=== PATIENT | male | born 1965 | race Caucasian/White ===

== ENCOUNTER 2024-10-23 19:42 | Inpatient (IN) | payer BC ==
[~2024-10-23] VITALS: Ht 188 cm; Wt 110.9 kg
[~2024-10-23 19:42] MED LIST: JANUMET XR 1001 EACH PO; LANTUS100 UNITS/ SQ
[2024-10-23 19:48] VITALS: PULSE 99; RESP 18; TEMP 97.8
[2024-10-23 20:05] LABS: BASOPHILS # (AUTO) 0.1 (0.0-0.1); BASOPHILS % 0.5 % (0.0-1.0); EOSINOPHILS # (AUTO) 0.1 (0.0-0.4); EOSINOPHILS % 0.3 % (0.0-6.0); HEMOGLOBIN 12.8 g/dL (14.0-18.0); LYMPHOCYTES % 5.7 % (18.0-39.1); MEAN CORPUSCULAR HEMOGLOBIN 28.7 pg (28-32); MEAN CORPUSCULAR VOLUME 89.7 fL (81-99); MONOCYTES # (AUTO) 2.2 (0.2-0.8); MONOCYTES % 12.2 % (4.4-11.3); NEUTROPHILS # (AUTO) 13.7 (2.1-6.9); NEUTROPHILS % 77.6 % (38.7-80.0); PLATELET COUNT 383 x10e3/uL (140-360); RED BLOOD COUNT 4.46 x10e6/uL (4.3-5.7); RED CELL DISTRIBUTION WIDTH 17.2 % (11.7-14.4); WHITE BLOOD COUNT 17.62 x10e3/uL (4.8-10.8)
[2024-10-23 20:34] LABS: ALBUMIN 1.7 g/dL (3.5-5.0); ALBUMIN/GLOBULIN RATIO 0.4 (0.8-2.0); ANION GAP 24.3 mmol/L (8-16); BILIRUBIN,TOTAL 0.4 mg/dL (0.2-1.2); CALCIUM 9.1 mg/dL (8.4-10.2); CREATININE, SERUM 1.29 mg/dL (0.72-1.25); TOTAL PROTEIN 6.2 g/dL (6.5-8.1)
[2024-10-23 20:39] LABS: TROPONIN I 0.016 ng/mL (0-0.300)
[2024-10-23 20:47] LABS: POTASSIUM 3.3 mmol/L (3.5-5.1)
[2024-10-23 21:00] LABS: BAND NEUTROPHILS % (MANUAL) 4 %; LYMPHOCYTES % (MANUAL) 5 % (19-48); METAMYELOCYTES % (MANUAL) 1 % (0-0); MONOCYTES % (MANUAL) 9 % (3.4-9.0); NEUTROPHILS % (MANUAL) 80 % (40-74); REACTIVE LYMPHOCYTES 1
[2024-10-23 21:04] LABS: PLATELET ESTIMATE ADEQUATE; PLATELET MORPHOLOGY COMMENT NORMAL; RBC MORPHOLOGY COMMENT NORMAL
[2024-10-23] MEDS: ACETAMINOPHEN 325 MG TAB PO STA (21:40)
[2024-10-23] MEDS: SODIUM CHLORIDE 0.9% 1000ML 1,000 ML IV STA (21:40)
[2024-10-23] MEDS: SODIUM BICARBONATE 8.4% SYRING 150 ML in DEXTROSE 5% 1,000 ML IV ONE (22:07)
[2024-10-23] MEDS: ONDANSETRON HCL INJ 2MG/ML 2ML 2 MG/ML VIAL IV PRN (22:09)
[2024-10-23] MEDS: Morphine 4mg INJECTION 4 MG/ML INJ IV PRN (22:10)
[2024-10-23] MEDS ORDERED: PANTOPRAZOLE SO40 MG (22:52)
[2024-10-23] MEDS ORDERED: DAPAGLIFLOZIN10 MG (22:52)
[2024-10-23] MEDS ORDERED: CLOTRIMAZOLE15 GM (22:52)
[2024-10-23] MEDS ORDERED: BENZONATATE200 MG (22:52)
[2024-10-23] MEDS ORDERED: ALBUTEROL (22:52)
[2024-10-23] MEDS ORDERED: ATORVASTATIN CA20 MG (22:52)
[2024-10-23 23:00] VITALS: BP 108/58; PULSE 95; RESP 27; O2SAT 99
[2024-10-23 23:17] VITALS: BP 121/63; PULSE 95; RESP 19; TEMP 97.8; O2SAT 100
[2024-10-24] VITALS (19 sets, daily range): BP systolic 114–152; BP diastolic 65–80; PULSE 86–98; RESP 11–23; TEMP 97.6–97.8; O2SAT 97–100
[2024-10-24 07:05] LABS: BASOPHILS # (AUTO) 0.1 (0.0-0.1); BASOPHILS % 0.5 % (0.0-1.0); EOSINOPHILS % 0.2 % (0.0-6.0); HEMATOCRIT 36.9 % (38.2-49.6); HEMOGLOBIN 12.1 g/dL (14.0-18.0); LYMPHOCYTES % 5.5 % (18.0-39.1); MEAN CORPUSCULAR HEMOGLOBIN 28.6 pg (28-32); MEAN CORPUSCULAR HGB CONC 32.8 g/dL (31-35); MEAN CORPUSCULAR VOLUME 87.2 fL (81-99); MONOCYTES # (AUTO) 2.6 (0.2-0.8); MONOCYTES % 14.1 % (4.4-11.3); NEUTROPHILS # (AUTO) 14.2 (2.1-6.9); NEUTROPHILS % 75.8 % (38.7-80.0); PLATELET COUNT 419 x10e3/uL (140-360); RED BLOOD COUNT 4.23 x10e6/uL (4.3-5.7); RED CELL DISTRIBUTION WIDTH 16.9 % (11.7-14.4); WHITE BLOOD COUNT 18.78 x10e3/uL (4.8-10.8)
[2024-10-24 07:35] LABS: ANION GAP 22.7 mmol/L (8-16); BILIRUBIN,TOTAL 0.4 mg/dL (0.2-1.2); CALCIUM 9.3 mg/dL (8.4-10.2); CREATININE, SERUM 1.2 mg/dL (0.72-1.25); TOTAL PROTEIN 5.8 g/dL (6.5-8.1)
[2024-10-24 07:41] LABS: POTASSIUM 2.7 mmol/L (3.5-5.1)
[2024-10-24 07:55] LABS: ALBUMIN 1.7 g/dL (3.5-5.0); ALBUMIN/GLOBULIN RATIO 0.4 (0.8-2.0)
[2024-10-24 08:16] LABS: TROPONIN I 0.009 ng/mL (0-0.300)
[2024-10-24] MEDS ORDERED: DEXTROSE 50% SYRINGE 50 ML IV PRN (10:45)
[2024-10-24] MEDS ORDERED: SIMETHICONE 80 MG CHEW PO PRN (10:45)
[2024-10-24] MEDS ORDERED: ALBUTEROL/IPRATROPIUM 3 ML NEB NEB PRN (10:45)
[2024-10-24] MEDS ORDERED: METOPROLOL TARTRATE INJ 1 MG/ML VIAL IV PRN (10:45)
[2024-10-24 11:43] LABS: CHOL/HDL RATIO 3.2 (3.9-4.7)
[2024-10-24] MEDS: INSULIN REGULAR, HUMAN 100 UNIT/1 ML SQ SCH (12:53)
[2024-10-24] MEDS: POTASSIUM CHLORIDE 20MEQ/100ML 200 ML IV ONE (12:56)
[2024-10-24] MEDS: SODIUM BICARBONATE 8.4% IV SCH (12:57)
[2024-10-24] MEDS: SODIUM CHLORIDE 0.45% IV SCH (12:57)
[2024-10-24] MEDS: VANCOMYCIN 1.5 GM/300 ML IV SCH (15:39)
[2024-10-24] MEDS: ENOXAPARIN SOD INJ 40 MG/0.4 ML SYR SC SCH (16:35)
[2024-10-24] MEDS: POTASSIUM CHLORIDE 20MEQ/100ML 100 ML IV SCH (22:49)
[2024-10-25] VITALS (16 sets, daily range): BP systolic 124–140; BP diastolic 63–77; PULSE 86–101; RESP 12–23; TEMP 97.7–98.7; O2SAT 98–100
[2024-10-25] MEDS: PANTOPRAZOLE SOD 40 MG TABEC PO SCH (09:28)
[2024-10-25 09:51] LABS: BASOPHILS # (AUTO) 0.1 (0.0-0.1); BASOPHILS % 0.6 % (0.0-1.0); EOSINOPHILS # (AUTO) 0.1 (0.0-0.4); EOSINOPHILS % 0.6 % (0.0-6.0); HEMATOCRIT 35.2 % (38.2-49.6); HEMOGLOBIN 11.6 g/dL (14.0-18.0); LYMPHOCYTES # (AUTO) 1.1 (1.0-3.2); LYMPHOCYTES % 5.8 % (18.0-39.1); MEAN CORPUSCULAR HEMOGLOBIN 28.6 pg (28-32); MEAN CORPUSCULAR VOLUME 86.9 fL (81-99); MONOCYTES # (AUTO) 3.1 (0.2-0.8); NEUTROPHILS # (AUTO) 12.6 (2.1-6.9); NEUTROPHILS % 69.3 % (38.7-80.0); PLATELET COUNT 431 x10e3/uL (140-360); RED BLOOD COUNT 4.05 x10e6/uL (4.3-5.7); RED CELL DISTRIBUTION WIDTH 17.1 % (11.7-14.4); WHITE BLOOD COUNT 18.16 x10e3/uL (4.8-10.8)
[2024-10-25 10:42] LABS: ANION GAP 20.1 mmol/L (8-16); CALCIUM 9.3 mg/dL (8.4-10.2); CREATININE, SERUM 1.18 mg/dL (0.72-1.25)
[2024-10-25 10:46] LABS: POTASSIUM 3.1 mmol/L (3.5-5.1)
[2024-10-25] MEDS: SODIUM BICARBONATE 8.4% IV SCH (16:47)
[2024-10-25] MEDS: SODIUM CHLORIDE 0.45% IV SCH (16:47)
[2024-10-26] VITALS (15 sets, daily range): BP systolic 120–150; BP diastolic 64–79; PULSE 85–105; RESP 14–24; TEMP 97.7–98.8; O2SAT 97–100
[2024-10-26 07:26] LABS: BASOPHILS # (AUTO) 0.1 (0.0-0.1); BASOPHILS % 0.7 % (0.0-1.0); EOSINOPHILS # (AUTO) 0.2 (0.0-0.4); EOSINOPHILS % 1.4 % (0.0-6.0); HEMATOCRIT 32.8 % (38.2-49.6); HEMOGLOBIN 10.9 g/dL (14.0-18.0); LYMPHOCYTES # (AUTO) 1.1 (1.0-3.2); LYMPHOCYTES % 7.6 % (18.0-39.1); MEAN CORPUSCULAR HEMOGLOBIN 28.7 pg (28-32); MEAN CORPUSCULAR HGB CONC 33.2 g/dL (31-35); MEAN CORPUSCULAR VOLUME 86.3 fL (81-99); MONOCYTES # (AUTO) 3.3 (0.2-0.8); MONOCYTES % 22.7 % (4.4-11.3); NEUTROPHILS % 61.3 % (38.7-80.0); PLATELET COUNT 442 x10e3/uL (140-360); RED CELL DISTRIBUTION WIDTH 16.9 % (11.7-14.4)
[2024-10-26 08:05] LABS: ANION GAP 17.8 mmol/L (8-16); CREATININE, SERUM 0.99 mg/dL (0.72-1.25)
[2024-10-26 08:07] LABS: POTASSIUM 2.8 mmol/L (3.5-5.1)
[2024-10-26] MEDS: POTASSIUM CHLORIDE 20MEQ/100ML 100 ML IV SCH (08:53)
[2024-10-26 10:38] LABS: BAND NEUTROPHILS % (MANUAL) 1 %; EOSINOPHILS % (MANUAL) 1 % (0-7); LYMPHOCYTES % (MANUAL) 6 % (19-48); METAMYELOCYTES % (MANUAL) 1 % (0-0); MONOCYTES % (MANUAL) 17 % (3.4-9.0); MYELOCYTES % (MANUAL) 6 % (0-0); NEUTROPHILS % (MANUAL) 68 % (40-74); PLATELET ESTIMATE ADEQUATE; PLATELET MORPHOLOGY COMMENT NORMAL
[2024-10-26] MEDS: INSULIN LISPRO 100 UNIT/1 ML 3ML VIAL SQ SCH (12:57)
[2024-10-26] MEDS: POTASSIUM CHLORIDE 20MEQ/100ML 100 ML IV ONE (17:23)
[2024-10-26] MEDS: CEFTRIAXONE 2 GM in SODIUM CHLORIDE 0.9% 100 ML IV SCH (20:29)
[2024-10-26] MEDS: POTASSIUM CHLORIDE 20MEQ/100ML 100 ML ONE (22:29)
[2024-10-27] VITALS (20 sets, daily range): BP systolic 137–161; BP diastolic 68–94; PULSE 87–101; RESP 13–20; TEMP 97.9–98.5; O2SAT 94–100
[2024-10-27 07:40] LABS: HIV 1&2 AB SCREEN NON-REACTIVE (NONREACTIVE); HIV- 1 P24 AG SCREEN NON-REACTIVE (NONREACTIVE)
[2024-10-27] MEDS: ACETAMINOPHEN 325 MG TAB PO PRN (12:04)
[2024-10-27] MEDS: INSULIN LISPRO 100 UNIT/1 ML 3ML VIAL SQ SCH (12:07)
[2024-10-28] VITALS (13 sets, daily range): BP systolic 124–153; BP diastolic 69–79; PULSE 93–109; RESP 14–21; TEMP 98–99.3; O2SAT 95–99
[2024-10-28 05:12] LABS: ABG HCO3 9 mmol/L (22-26); ABG PCO2 22 mmHg (35-45); ABG PO2 45 mmHg (80-105); ABG TCO2 9
[2024-10-28 06:54] LABS: BASOPHILS # (AUTO) 0.1 (0.0-0.1); BASOPHILS % 0.5 % (0.0-1.0); EOSINOPHILS # (AUTO) 0.1 (0.0-0.4); EOSINOPHILS % 0.5 % (0.0-6.0); HEMATOCRIT 30.6 % (38.2-49.6); HEMOGLOBIN 10.5 g/dL (14.0-18.0); LYMPHOCYTES # (AUTO) 1.5 (1.0-3.2); LYMPHOCYTES % 10.2 % (18.0-39.1); MEAN CORPUSCULAR HEMOGLOBIN 28.8 pg (28-32); MEAN CORPUSCULAR HGB CONC 34.3 g/dL (31-35); MEAN CORPUSCULAR VOLUME 83.8 fL (81-99); MONOCYTES # (AUTO) 3.1 (0.2-0.8); MONOCYTES % 20.8 % (4.4-11.3); NEUTROPHILS % 61.2 % (38.7-80.0); PLATELET COUNT 476 x10e3/uL (140-360); RED BLOOD COUNT 3.65 x10e6/uL (4.3-5.7); RED CELL DISTRIBUTION WIDTH 16.6 % (11.7-14.4); WHITE BLOOD COUNT 14.65 x10e3/uL (4.8-10.8)
[2024-10-28 07:17] LABS: ANION GAP 17.6 mmol/L (8-16); CALCIUM 8.5 mg/dL (8.4-10.2); CREATININE, SERUM 0.7 mg/dL (0.72-1.25)
[2024-10-28 07:24] LABS: POTASSIUM 2.6 mmol/L (3.5-5.1)
[2024-10-28 07:31] LABS: MAGNESIUM 2.1 MG/DL (1.3-2.1); PHOSPHORUS 2.1 MG/DL (2.3-4.7)
[2024-10-28] MEDS: POTASSIUM CHLORIDE 20MEQ/100ML 100 ML IV SCH (08:40)
[2024-10-28 08:52] LABS: LYMPHOCYTES % (MANUAL) 12 % (19-48); METAMYELOCYTES % (MANUAL) 1 % (0-0); MONOCYTES % (MANUAL) 14 % (3.4-9.0); MYELOCYTES % (MANUAL) 2 % (0-0); NEUTROPHILS % (MANUAL) 71 % (40-74); PLATELET ESTIMATE ADEQUATE; PLATELET MORPHOLOGY COMMENT NORMAL
[2024-10-28] MEDS: DOCUSATE SODIUM 100 MG CAP PO PRN (12:28)
[2024-10-28] MEDS: POTASSIUM CHLORIDE 20MEQ/100ML 200 ML IV ONE (21:30)
[2024-10-29] VITALS (16 sets, daily range): BP systolic 96–166; BP diastolic 59–83; PULSE 93–99; RESP 11–21; TEMP 98–99.3; O2SAT 95–100
[2024-10-29 09:23] LABS: BASOPHILS # (AUTO) 0.1 (0.0-0.1); BASOPHILS % 0.5 % (0.0-1.0); EOSINOPHILS # (AUTO) 0.1 (0.0-0.4); EOSINOPHILS % 0.3 % (0.0-6.0); HEMATOCRIT 32.9 % (38.2-49.6); LYMPHOCYTES # (AUTO) 1.3 (1.0-3.2); LYMPHOCYTES % 8.5 % (18.0-39.1); MEAN CORPUSCULAR HEMOGLOBIN 28.4 pg (28-32); MEAN CORPUSCULAR HGB CONC 33.4 g/dL (31-35); MONOCYTES # (AUTO) 2.3 (0.2-0.8); MONOCYTES % 15.5 % (4.4-11.3); NEUTROPHILS # (AUTO) 10.1 (2.1-6.9); NEUTROPHILS % 69.3 % (38.7-80.0); PLATELET COUNT 497 x10e3/uL (140-360); RED BLOOD COUNT 3.87 x10e6/uL (4.3-5.7); WHITE BLOOD COUNT 14.64 x10e3/uL (4.8-10.8)
[2024-10-29 10:06] LABS: ALBUMIN 1.5 g/dL (3.5-5.0); ALBUMIN/GLOBULIN RATIO 0.3 (0.8-2.0); ANION GAP 18.6 mmol/L (8-16); BILIRUBIN,TOTAL 0.4 mg/dL (0.2-1.2); CALCIUM 8.5 mg/dL (8.4-10.2); CREATININE, SERUM 0.68 mg/dL (0.72-1.25); POTASSIUM 3.6 mmol/L (3.5-5.1)
[2024-10-29] MEDS ORDERED: PROPOFOL IV EMULSION 10 MG/ML 20 ML VIAL ONE (12:03)
[2024-10-29] MEDS: SODIUM CHLORIDE 0.9% 250ML 250 ML ONE (13:08)
[2024-10-30] VITALS (9 sets, daily range): BP systolic 108–134; BP diastolic 65–79; PULSE 76–102; RESP 16–20; TEMP 97.3–99.1; O2SAT 92–100
[2024-10-30] MEDS: BENZOCAINE 20% SPR 60 ML CAN ONE (19:04)
[2024-10-30] MEDS: SODIUM CHLORIDE 0.9% 1000ML 1,000 ML ONE (19:05)
[2024-10-30] MEDS: ACETAMINOPHEN/CODEINE 300MG - 30MG TAB PO PRN (20:44)
[2024-10-30] MEDS: MELATONIN 3 MG TAB PO PRN (20:44)
[2024-10-31] VITALS (8 sets, daily range): BP systolic 109–136; BP diastolic 64–81; PULSE 86–98; RESP 16–20; TEMP 97.4–98.1; O2SAT 96–99
[2024-10-31 12:35] LABS: BASOPHILS # (AUTO) 0.1 (0.0-0.1); BASOPHILS % 0.4 % (0.0-1.0); EOSINOPHILS # (AUTO) 0.1 (0.0-0.4); EOSINOPHILS % 0.7 % (0.0-6.0); HEMATOCRIT 30.3 % (38.2-49.6); LYMPHOCYTES # (AUTO) 2.1 (1.0-3.2); LYMPHOCYTES % 14.7 % (18.0-39.1); MEAN CORPUSCULAR HEMOGLOBIN 28.8 pg (28-32); MEAN CORPUSCULAR VOLUME 87.3 fL (81-99); MONOCYTES # (AUTO) 1.6 (0.2-0.8); MONOCYTES % 11.1 % (4.4-11.3); NEUTROPHILS # (AUTO) 9.7 (2.1-6.9); NEUTROPHILS % 69.6 % (38.7-80.0); PLATELET COUNT 527 x10e3/uL (140-360); RED BLOOD COUNT 3.47 x10e6/uL (4.3-5.7); RED CELL DISTRIBUTION WIDTH 16.3 % (11.7-14.4); WHITE BLOOD COUNT 13.98 x10e3/uL (4.8-10.8)
[2024-10-31 12:51] LABS: ANION GAP 17.7 mmol/L (8-16); CALCIUM 8.4 mg/dL (8.4-10.2); CREATININE, SERUM 0.63 mg/dL (0.72-1.25); POTASSIUM 3.7 mmol/L (3.5-5.1)
[2024-11-01] VITALS (9 sets, daily range): BP systolic 108–154; BP diastolic 58–81; PULSE 92–107; RESP 16–21; TEMP 98.1–98.8; O2SAT 95–98
[2024-11-02] VITALS (7 sets, daily range): BP systolic 129–136; BP diastolic 71–78; PULSE 95–103; RESP 18–20; TEMP 97.8–99.3; O2SAT 94–98
[2024-11-02 09:20] LABS: BASOPHILS # (AUTO) 0.1 (0.0-0.1); BASOPHILS % 0.6 % (0.0-1.0); EOSINOPHILS # (AUTO) 0.1 (0.0-0.4); EOSINOPHILS % 0.5 % (0.0-6.0); HEMATOCRIT 33.3 % (38.2-49.6); HEMOGLOBIN 10.3 g/dL (14.0-18.0); LYMPHOCYTES # (AUTO) 1.8 (1.0-3.2); LYMPHOCYTES % 12.9 % (18.0-39.1); MEAN CORPUSCULAR HEMOGLOBIN 28.7 pg (28-32); MEAN CORPUSCULAR HGB CONC 30.9 g/dL (31-35); MEAN CORPUSCULAR VOLUME 92.8 fL (81-99); MONOCYTES # (AUTO) 1.1 (0.2-0.8); MONOCYTES % 7.6 % (4.4-11.3); NEUTROPHILS # (AUTO) 10.7 (2.1-6.9); NEUTROPHILS % 75.2 % (38.7-80.0); PLATELET COUNT 566 x10e3/uL (140-360); RED BLOOD COUNT 3.59 x10e6/uL (4.3-5.7); RED CELL DISTRIBUTION WIDTH 16.4 % (11.7-14.4); WHITE BLOOD COUNT 14.27 x10e3/uL (4.8-10.8)
[2024-11-02] MEDS ORDERED: Insulin Lispro SQ (14:45)
== END 2024-11-02 18:10 | DRG 871 ==
LOC: ER 19:45 → ERHOLD 21:40 → ICU 22:41 → MED/SURG 10-29 07:29
PROVIDERS: ADMIT Internal Medicine; ATTEND Internal Medicine
PROC: 4A133R1 Monitoring of Arterial Saturation, Peripheral, Percutaneous Approach (ICD-10-PCS; principal; 2024-10-23)
PROC: 3E0333Z Introduction of Anti-inflammatory into Peripheral Vein, Percutaneous Approach (ICD-10-PCS; 2024-10-23)
PROC: 02HV33Z Insertion of Infusion Device into Superior Vena Cava, Percutaneous Approach (ICD-10-PCS; 2024-10-24)
PROC: 0S9G3ZX Drainage of Left Ankle Joint, Percutaneous Approach, Diagnostic (ICD-10-PCS; 2024-10-27)
PROC: 02HV33Z Insertion of Infusion Device into Superior Vena Cava, Percutaneous Approach (ICD-10-PCS; 2024-11-02)
DX: A40.1 Sepsis due to streptococcus, group B (principal); K85.90 Acute pancreatitis without necrosis or infection, unspecified; E87.20 Acidosis, unspecified; M00.872 Arthritis due to other bacteria, left ankle and foot; L97.518 Non-pressure chronic ulcer of other part of right foot with other specified severity; L03.116 Cellulitis of left lower limb; L03.115 Cellulitis of right lower limb; E11.621 Type 2 diabetes mellitus with foot ulcer; B95.61 Methicillin susceptible Staphylococcus aureus infection as the cause of diseases classified elsewhere; B96.4 Proteus (mirabilis) (morganii) as the cause of diseases classified elsewhere; M85.872 Other specified disorders of bone density and structure, left ankle and foot; E86.0 Dehydration; I10 Essential (primary) hypertension; E78.5 Hyperlipidemia, unspecified; E87.6 Hypokalemia; M25.472 Effusion, left ankle; M19.90 Unspecified osteoarthritis, unspecified site; M25.872 Other specified joint disorders, left ankle and foot; E66.9 Obesity, unspecified; Z68.31 Body mass index [BMI] 31.0-31.9, adult; W18.30XA Fall on same level, unspecified, initial encounter; Z79.4 Long term (current) use of insulin; Z79.84 Long term (current) use of oral hypoglycemic drugs; Z88.5 Allergy status to narcotic agent
CPT/HCPCS: 10160; 36415; 36568; 71045; 76942; 80048; 80053; 80061; 80202; 82550; 82805; 82948; 83036; 83605; 83690; 83735; 83880; 84100; 84132; 84484; 85025; 87040; 87071; 87075; 87086; 87186; 87205; 87390; 93005; 93306; 93307; 93312; 93320; 93325; 93355; 94799; 96372; 99252; 99285; G0433; G0435; J0692; J0696; J1650; J2270; J2405; J2470; J2543; J3480; J7030; J7050; J7070

== ENCOUNTER 2024-11-07 18:05 | Observation (INO) | payer BC ==
[~2024-11-07] VITALS: Ht 182.9 cm; Wt 110.7 kg
[~2024-11-07 18:05] MED LIST changes: +ALBUTEROL; +ATORVASTATIN CA20 MG; +BENZONATATE200 MG; +CLOTRIMAZOLE15 GM; +DAPAGLIFLOZIN10 MG; +Insulin Lispro SQ; +PANTOPRAZOLE SO40 MG
[2024-11-07 18:11] VITALS: PULSE 93; RESP 18; O2SAT 98
[2024-11-07] MEDS ORDERED: ONDANSETRON HCL INJ 2MG/ML 2ML 2 MG/ML VIAL IV PRN (18:45)
[2024-11-07] MEDS ORDERED: ACETAMINOPHEN/CODEINE 300MG - 30MG TAB PO PRN (18:45)
[2024-11-07] MEDS: Vancomycin IV 1.25 GM in SODIUM CHLORIDE 0.9% 250ML 250 ML IV ONE (18:56)
[2024-11-07] MEDS: SODIUM CHLORIDE 0.9% 1000ML 1,000 ML IV SCH (18:56)
[2024-11-07 19:02] LABS: BASOPHILS % 0.4 % (0.0-1.0); EOSINOPHILS # (AUTO) 0.2 (0.0-0.4); EOSINOPHILS % 1.6 % (0.0-6.0); HEMOGLOBIN 9.2 g/dL (14.0-18.0); LYMPHOCYTES # (AUTO) 2.1 (1.0-3.2); LYMPHOCYTES % 23.1 % (18.0-39.1); MEAN CORPUSCULAR HGB CONC 31.7 g/dL (31-35); MEAN CORPUSCULAR VOLUME 88.4 fL (81-99); MONOCYTES # (AUTO) 0.9 (0.2-0.8); MONOCYTES % 9.6 % (4.4-11.3); NEUTROPHILS # (AUTO) 5.9 (2.1-6.9); NEUTROPHILS % 64.3 % (38.7-80.0); PLATELET COUNT 589 x10e3/uL (140-360); RED BLOOD COUNT 3.28 x10e6/uL (4.3-5.7); RED CELL DISTRIBUTION WIDTH 15.4 % (11.7-14.4); WHITE BLOOD COUNT 9.18 x10e3/uL (4.8-10.8)
[2024-11-07 19:26] LABS: ALBUMIN 1.5 g/dL (3.5-5.0); ALBUMIN/GLOBULIN RATIO 0.3 (0.8-2.0); ANION GAP 12.7 mmol/L (8-16); BILIRUBIN,TOTAL 0.2 mg/dL (0.2-1.2); CALCIUM 8.2 mg/dL (8.4-10.2); CREATININE, SERUM 0.7 mg/dL (0.72-1.25); POTASSIUM 3.7 mmol/L (3.5-5.1); TOTAL PROTEIN 6.4 g/dL (6.5-8.1)
[2024-11-07 19:30] VITALS: PULSE 103; RESP 16; TEMP 99.8
[2024-11-07 20:00] VITALS: BP 131/71; PULSE 87; RESP 20; TEMP 98.1; O2SAT 99
[2024-11-07 20:02] VITALS: BP 106/63; PULSE 94; RESP 20; TEMP 99.8; O2SAT 95
[2024-11-07] MEDS ORDERED: ACETAMINOPHEN 325 MG TAB PO PRN (20:15)
[2024-11-07] MEDS ORDERED: CYMBALTA20 MG PO (23:55)
[2024-11-07] MEDS ORDERED: HUMALOG MI100 UNIT/2 SQ (23:55)
[2024-11-07] MEDS ORDERED: DAPAGLIFLOZIN10 MG (23:55)
[2024-11-07] MEDS ORDERED: TRESIBA FL200 UNIT/1 (23:55)
[2024-11-07] MEDS ORDERED: ATORVASTATIN CA20 MG PO (23:55)
[2024-11-07] MEDS ORDERED: PANTOPRAZOLE SO40 MG PO (23:55)
[2024-11-07] MEDS ORDERED: FENOFIBRATE160 MG (23:55)
[2024-11-07] MEDS ORDERED: LOSARTAN POTASS25 MG PO (23:55)
[2024-11-07] MEDS ORDERED: FENOFIBRATE134 MG (23:55)
[2024-11-07] MEDS ORDERED: LOTRIMIN AF12 GM TOP (23:55)
[2024-11-07] MEDS ORDERED: METFORMIN HCL500 MG PO (23:55)
[2024-11-08] VITALS (7 sets, daily range): BP systolic 117–145; BP diastolic 70–77; PULSE 80–97; RESP 18–20; TEMP 98.1–99; O2SAT 96–100
[2024-11-08 05:42] LABS: BASOPHILS # (AUTO) 0.1 (0.0-0.1); BASOPHILS % 0.6 % (0.0-1.0); EOSINOPHILS # (AUTO) 0.2 (0.0-0.4); EOSINOPHILS % 2.3 % (0.0-6.0); HEMATOCRIT 29.9 % (38.2-49.6); HEMOGLOBIN 9.1 g/dL (14.0-18.0); LYMPHOCYTES # (AUTO) 1.5 (1.0-3.2); LYMPHOCYTES % 18.7 % (18.0-39.1); MEAN CORPUSCULAR HEMOGLOBIN 27.9 pg (28-32); MEAN CORPUSCULAR HGB CONC 30.4 g/dL (31-35); MEAN CORPUSCULAR VOLUME 91.7 fL (81-99); MONOCYTES # (AUTO) 0.8 (0.2-0.8); MONOCYTES % 10.4 % (4.4-11.3); NEUTROPHILS # (AUTO) 5.3 (2.1-6.9); NEUTROPHILS % 66.2 % (38.7-80.0); PLATELET COUNT 563 x10e3/uL (140-360); RED BLOOD COUNT 3.26 x10e6/uL (4.3-5.7); RED CELL DISTRIBUTION WIDTH 15.7 % (11.7-14.4); WHITE BLOOD COUNT 7.97 x10e3/uL (4.8-10.8)
[2024-11-08 06:24] LABS: ALBUMIN 1.4 g/dL (3.5-5.0); ALBUMIN/GLOBULIN RATIO 0.3 (0.8-2.0); ANION GAP 15.5 mmol/L (8-16); BILIRUBIN,TOTAL 0.3 mg/dL (0.2-1.2); CALCIUM 8.3 mg/dL (8.4-10.2); CREATININE, SERUM 0.65 mg/dL (0.72-1.25); POTASSIUM 3.5 mmol/L (3.5-5.1); TOTAL PROTEIN 6.2 g/dL (6.5-8.1)
[2024-11-08] MEDS ORDERED: DEXTROSE 50% SYRINGE 50 ML IV PRN (07:00)
[2024-11-08] MEDS ORDERED: POLYETHYLENE GLYCOL 3350 17 GM PACK PO PRN (07:00)
[2024-11-08] MEDS ORDERED: BISACODYL 10 MG SUPP PR PRN (07:00)
[2024-11-08] MEDS ORDERED: HYDRALAZINE HCL 20 MG/ML VIAL IV PRN (07:00)
[2024-11-08] MEDS: DULOXETINE HCL 30 MG DELAYED RELEASE PO SCH (09:18)
[2024-11-08] MEDS: PANTOPRAZOLE SOD 40 MG TABEC PO SCH (09:18)
[2024-11-08] MEDS: SENNOSIDES 8.6 MG TAB PO SCH (09:18)
[2024-11-08] MEDS: LOSARTAN POTASSIUM 25 MG TAB PO SCH (09:19)
[2024-11-08] MEDS: DOCUSATE SODIUM 100 MG CAP PO SCH (09:19)
[2024-11-08] MEDS: INSULIN LISPRO 100 UNIT/1 ML 3ML VIAL SQ SCH (09:25)
[2024-11-08 14:38] LABS: PROTHROMBIN TIME 14.1 seconds (11.9-14.5)
[2024-11-08 15:42] LABS: BODY FLUID APPEARANCE CLOUDY; BODY FLUID COLOR YELLOW; BODY FLUID TYPE SYNOVIAL
[2024-11-08 16:10] LABS: RBC,BODY FLUID 1000 cells/uL; WBC,BODY FLUID 15857 cells/uL
[2024-11-08 18:23] LABS: LYMPHOCYTES,BODY FLUID 10 %; MONO/MACROPHG,BODY FLUID 3 %; NEUTROPHILS,BODY FLUID 87 %; TOTAL CELLS COUNTED (DIFF) 100
[2024-11-08] MEDS: ATORVASTATIN 20 MG TAB PO SCH (20:00)
[2024-11-08] MEDS: PREDNISONE 10 MG TAB PO ONE (20:00)
== END 2024-11-08 21:30 ==
LOC: ER 18:12 → ERHOLD 18:38 → MED/SURG3 19:57 → MED/SURG2 11-08 16:21
PROVIDERS: ADMIT Internal Medicine; ATTEND Internal Medicine
DX: M25.461 Effusion, right knee (principal); L03.116 Cellulitis of left lower limb; E11.9 Type 2 diabetes mellitus without complications; Z79.4 Long term (current) use of insulin; M41.9 Scoliosis, unspecified; I10 Essential (primary) hypertension; E66.09 Other obesity due to excess calories; Z68.33 Body mass index [BMI] 33.0-33.9, adult; K21.9 Gastro-esophageal reflux disease without esophagitis; E78.5 Hyperlipidemia, unspecified
CPT/HCPCS: 20611; 36415 ×2; 73562; 74470; 76942; 80053 ×2; 82948; 84560; 85025 ×2; 85610; 87071; 87075; 87205; 89051; 94799 ×2; 97162; 99284; G0378 ×2; J2470; J2543; J3370; J7030 ×2; J7050; J7512; 10160